=== PATIENT | female | born 1990 | race Caucasian/White ===

== ENCOUNTER 2025-09-01 08:51 | Emergency (ER) | payer BC, OTHER ==
[~2025-09-01] VITALS: Ht 162.6 cm; Wt 58.1 kg
[2025-09-01 08:53] VITALS: BP 128/79
[2025-09-01 09:22] LABS: *BILIRUBIN,URIN NEGATIVE (NEGATIVE); *BLOOD, URINE TRACE (NEGATIVE); *CLARITY,URINE SLIGHTLY HAZY (CLEAR); *COLOR,URINE YELLOW (YELLOW); *KETONES,URINE NEGATIVE (NEGATIVE); *PROTEIN,URINE NEGATIVE (NEGATIVE); *UROBILINOGEN,URINE 0.2 E.U./dl (NORMAL); LEUKOCYTE ESTERASE ,URINE TRACE (NEGATIVE); NITRITE, URINE NEGATIVE (NEGATIVE); UGLUCOSE NEGATIVE (NEGATIVE)
[2025-09-01 09:23] LABS: *URINE HCG, QUAL NEGATIVE (NEGATIVE); SQUAMOUS EPITHELIAL CELL,UR FEW /HPF (NONE SEEN); URINE AMORPHOUS URATE FEW /HPF
[2025-09-01] MEDS ORDERED: CEFD300C3 PO (09:37)
[2025-09-01] MEDS ORDERED: PHEN-705 PO (09:37)
[2025-09-01] MEDS ORDERED: PHENAZOPYRIDINE HCL 100 MG TABLET ONE (09:45)
[2025-09-01] MEDS: PHENAZOPYRIDINE HCL 100 MG TABLET PO ONE (09:46)
[2025-09-01 09:52] VITALS: BP 128/79; TEMP 98.3; O2SAT 99
== END 2025-09-01 09:53 | disposition home or self-care (01) ==
LOC: ER 08:51
DX: N39.0 Urinary tract infection, site not specified (principal); Z87.440 Personal history of urinary (tract) infections; Z91.148 Patient's other noncompliance with medication regimen for other reason
CPT/HCPCS: 84703; 87077; 87086; A4606; A4663